=== PATIENT | female | born 1955 | race Hispanic/Latino ===

== ENCOUNTER 2017-06-10 08:49 | Outpatient (CLI) | payer OTHER ==
[2017-06-10] MEDS ORDERED: PROVENTIL IH ONE (09:11)
== END 2017-06-10 08:50 | disposition home or self-care (01) ==
LOC: PF 08:49
PROVIDERS: ATTEND Internal Medicine
DX: J44.9 Chronic obstructive pulmonary disease, unspecified (principal); I10 Essential (primary) hypertension; F03.90 Unspecified dementia, unspecified severity, without behavioral disturbance, psychotic disturbance, mood disturbance, and anxiety; G96.19 Other disorders of meninges, not elsewhere classified; I60.9 Nontraumatic subarachnoid hemorrhage, unspecified; G93.6 Cerebral edema
CPT/HCPCS: 94060; 94640; 94729